=== PATIENT | male | born 1965 | race Caucasian/White ===

== ENCOUNTER 2016-08-18 15:04 | Emergency (ER) | payer OTHER ==
--- NOTE | 2016-08-18 15:38 | RADIOLOGY REPORT (SQ) ---
EXAM DESCRIPTION: CT HEAD WITHOUT COMPLETED DATE/TIME: 08/18/2016 3:24 pm REASON FOR STUDY: STROKE ALERT COMPARISON: None. TECHNIQUE: Axial images acquired through the brain without intravenous contrast. Images reviewed wi th bone, brain and subdural windows. Images stored on PACS. All CT scanners at this facility use dose modulation, iterative reconstruction, and/or weight based d osing when appropriate to reduce radiation dose to as low as reasonably achievable (ALARA). [facility]: Dose Right [facility]: CareDose [facility]: Dose Right [facility]: Teradose 4D [facility]: VCNC RADIATION DOSE: 64.61 mGy. LIMITATIONS: None. FINDINGS: VENTRICLES: Normal size and contour. CEREBRUM: No masses. No hemorrhage. No midline shift. Normal green/white matter differentiation. N o evidence for acute infarction. CEREBELLUM: No masses. No hemorrhage. No alteration of density. No evidence for acute infarction. EXTRAAXIAL SPACES: No fluid collections. No masses. ORBITS AND GLOBE: No intra- or extraconal masses. Normal contour of globe without masses. CALVARIUM: No fracture. PARANASAL SINUSES: No fluid or mucosal thickening. SOFT TISSUES: No mass or hematoma. OTHER: No other significant finding. IMPRESSION: NORMAL BRAIN CT WITHOUT CONTRAST. COMMENT: Pertinent positive or negative findings of the imaging study reported as a CRITICAL EXAM t o ER PROVIDER at15:32 on 08/18/2016. Category of Critical Exam: Stroke alert TECHNICAL DOCUMENTATION: JOB ID: [id number] Quality ID # [id number]: Final reports with documentation of one or more dose reduction techniques (e.g., Au tomated exposure control, adjustment of the mA and/or kV according to patient size, use of iterative reconstruction technique) 2010 [employer]- All Rights Reserved
--- NOTE | 2016-08-18 15:38 | RADIOLOGY REPORT (SQ) ---
EXAM DESCRIPTION: CHEST SINGLE VIEW COMPLETED DATE/TIME: 08/18/2016 3:26 pm REASON FOR STUDY: STROKE ALERT COMPARISON: None. EXAM PARAMETERS: NUMBER OF VIEWS: One view. TECHNIQUE: Single frontal radiographic view of the chest acquired. RADIATION DOSE: NA LIMITATIONS: None. FINDINGS: LUNGS AND PLEURA: No opacities, masses or pneumothorax. No pleural effusion. Granulomata. MEDIASTINUM AND HILAR STRUCTURES: No masses. Contour normal. HEART AND VASCULAR STRUCTURES: Heart normal in size. Normal vasculature. BONES: No acute findings. HARDWARE: None in the chest. OTHER: No other significant finding. IMPRESSION: NO ACUTE RADIOGRAPHIC FINDING IN THE CHEST. TECHNICAL DOCUMENTATION: JOB ID: [id number]
[2016-08-18 15:40] LABS: ABSOLUTE LYMPHOCYTES (AUTO) 3.4 10^3/uL (0.5-4.7); ABSOLUTE MONOCYTES (AUTO) 0.6 10^3/uL (0.1-1.4); ABSOLUTE NEUT (AUTO) 1.9 10^3/uL (1.7-8.2); BASOPHILS % (AUTO) 0.2 % (0-2); EOSINOPHILS % (AUTO) 0.5 % (0-6); HEMATOCRIT 46.8 % (37.9-51.0); HEMOGLOBIN 15.6 g/dL (13.5-17.0); LYMPHOCYTES % (AUTO) 57.3 % (13-45); MEAN CORPUSCULAR HEMOGLOBIN 29.8 pg (27.0-33.4); MEAN CORPUSCULAR HGB CONC 33.3 g/dL (32.0-36.0); MEAN CORPUSCULAR VOLUME 90 fl (80-97); MONOCYTES % (AUTO) 9.5 % (3-13); RED BLOOD COUNT 5.22 10^6/uL (4.35-5.55); RED CELL DISTRIBUTION WIDTH 13.3 % (11.5-14.0); SEGMENTED NEUTROPHILS % (AUTO) 32.5 % (42-78); WHITE BLOOD COUNT 5.9 10^3/uL (4.0-10.5)
[2016-08-18 15:43] LABS: PROTHROMBIN TIME 13.7 SEC (11.4-15.4)
[2016-08-18 15:44] LABS: PARTIAL THROMBOPLASTIN TIME 22.6 SEC (23.5-35.8)
--- NOTE | 2016-08-18 15:54 | ER Document Report ---
ED Dizziness/Weakness - General Mode of Arrival: Ambulatory Information source: Patient TRAVEL OUTSIDE OF THE [place] IN LAST 30 DAYS: No - HPI Onset: This morning - Refer to HPI notes <ENID LAMB - Last Filed: 08/18/16 17:59> <YADIRA PEREA - Last Filed: 08/18/16 19:20> - General Chief Complaint: Dizziness Stated Complaint: DIZZINESS Time Seen by Provider: 08/18/16 15:29 Notes: Patient is a 50-year-old male presenting to the emergency department for possible stroke. Patient visiting from [place] to help his son and his family move. Patient states that he was bending over to pickler helper a box when he became very dizzy and then diaphoretic. Patient describes his dizziness as being wobbly and not having good balance. Patient also complains of weakness to his right arm and he states he feels like his speech is slower than normal but not slurred. Patient also complains of some nausea, blurry vision and pain in the back of his neck at the base of his skull. Patient also complains of increased dizziness when using his eyes to follow finger movements. Patient states he may have taken the wrong doses of his medications but he is pretty sure that he read the labels correctly. Patient has a history of hypercholesterolemia, anxiety, and depression. Patient is not on any blood thinners and denies any history of seizures. Patient also denies any history of renal failure or problems with his kidneys. (ENID LAMB) Past Medical History - General Information source: Patient - Social History Smoking Status: Never Smoker Cigarette use (# per day): No Chew tobacco use (# tins/day): No Frequency of alcohol use: None Drug Abuse: None Family History: None Patient has suicidal ideation: No Patient has homicidal ideation: No - Past Medical History Cardiac Medical History: Reports: Hx Hypercholesterolemia Psychiatric Medical History: Reports: Hx Anxiety, Hx Depression Surgical Hx: Negative <ENID LAMB - Last Filed: 08/18/16 17:59> Review of Systems - Review of Systems Constitutional: See HPI, Diaphoresis EENT: See HPI, Blurred vision Cardiovascular: See HPI, Dizziness Respiratory: No symptoms reported Gastrointestinal: See HPI, Nausea Genitourinary: No symptoms reported Male Genitourinary: No symptoms reported Musculoskeletal: See HPI, Neck pain Skin: No symptoms reported Hematologic/Lymphatic: No symptoms reported Neurological/Psychological: See HPI, Headaches, Speech impairment -: Yes All other systems reviewed and negative <ENID LAMB - Last Filed: 08/18/16 17:59> Physical Exam <ENID LAMB - Last Filed: 08/18/16 17:59> <YADIRA PEREA - Last Filed: 08/18/16 19:20> - Vital signs Vitals: Temp Pulse Resp BP Pulse Ox 97.7 F 67 16 133/111 H 98 08/18/16 15:09 08/18/16 15:09 08/18/16 15:09 08/18/16 15:09 08/18/16 15:09 - Notes Notes: GENERAL: Alert, interacts well. No acute distress. HEAD: Normocephalic, atraumatic. No facial droop. EYES: Pupils equal, round, and reactive to light. Extraocular movements intact. ENT: Oral mucosa moist, tongue midline. NECK: Full range of motion. Supple. Trachea midline. LUNGS: Clear to auscultation bilaterally, no wheezes, rales, or rhonchi. No respiratory distress. HEART: Regular rate and rhythm. 1/6 systolic ejection murmur. No gallops or rubs. ABDOMEN: Soft, non-tender. Non-distended. Bowel sounds present in all 4 quadrants. EXTREMITIES: 4/5 muscle strength on the right upper extremity compared to the left. No pronator drift. Moves all 4 extremities spontaneously. No edema, radial and dorsalis pedis pulses 2/4 bilaterally. No cyanosis. NEUROLOGICAL: Alert and oriented x3. Normal speech. Cranial nerves II through XII grossly intact. Slight decreased sensation to the left face with light touch. No difficulty discerning dull versus sharp touch. PSYCH: Normal affect, normal mood. SKIN: Warm, dry, normal turgor. No rashes or lesions noted. (ENID LAMB) Course - Laboratory Result Diagrams: 08/18/16 15:30 08/18/16 15:30 <ENID LAMB - Last Filed: 08/18/16 17:59> - Laboratory Result Diagrams: 08/18/16 15:30 08/18/16 15:30 <YADIRA PEREA - Last Filed: 08/18/16 19:20> - Re-evaluation Re-evalutation: 08/18/16 18:16 MRI/MRA is unremarkable, no acute findings, no evidence of posterior infarct or cerebellar infarct. 08/18/16 19:19 CBC grossly unremarkable, coags within normal limits, CMP grossly unremarkable, cardiac enzymes negative. CT scan of the head negative for any acute hemorrhage. Given the patient's headache and persistent dizziness I am concerned for possible cerebellar stroke, patient was sent for an emergent MRI MRA of the head and this was negative. At this time I feel it is more likely that this represents peripheral vertigo although the Hilario-Hallpike test was negative bilaterally. Patient was started on Antivert, discharged to home with instructions on drinking plenty of fluids, trialing the Antivert and returning for any new or concerning symptoms. (YADIRA PEREA) - Vital Signs Vital signs: Temp Pulse Resp BP Pulse Ox 97.7 F 72 16 142/96 H 100 08/18/16 15:09 08/18/16 15:20 08/18/16 15:20 08/18/16 15:20 08/18/16 15:20 - Laboratory Laboratory results interpreted by me: 08/18/16 08/18/16 08/18/16 15:30 15:30 15:30 Seg Neutrophils % 32.5 L Lymphocytes % 57.3 H APTT 22.6 L Sodium 145.3 H Creatine Kinase 48 L - EKG Interpretation by Me Additional EKG results interpreted by me: 08/18/16 19:19 EKG shows sinus rhythm at a rate of 69, normal axis, normal intervals, no ST segment elevations or depressions, no T-wave inversions although there is T- wave flattening in aVL and lead I per my interpretation. (YADIRA PEREA) Discharge <ENID LAMB - Last Filed: 08/18/16 17:59> <YADIRA PEREA - Last Filed: 08/18/16 19:20> - Discharge Clinical Impression: Vertigo Condition: Stable Disposition: HOME, SELF-CARE Instructions: Vertigo ([facility]), Meclizine ([facility]) Prescriptions: Meclizine HCl 25 mg PO QIDP PRN #40 tablet PRN Reason: Scribe Attestation: 08/18/16 19:20 I personally performed the services described in the documentation, reviewed and edited the documentation which was dictated to the scribe in my presence, and it accurately records my words and actions. (YADIRA PEREA) ED NIH Stroke Scale - NIH Stroke Scale When completed:: Protocol *: 1. NIH scale should be completed with appropriate accompanying assessment tools. *: 2. The NIH should reflect what the patient is capable of doing and should not be coached by the clinician. 1a. Level of Consciousness: 0=Alert;keenly responsive -: 1=Drowsy -: 2=Obtunded -: 3=Coma/unresponsive or reflex to noxious stimuli. 1a. Responses: 0 1b. Orientation Questions: a. What month is it? -: b. How old are you? -: 0=Answers both questions correctly. -: 1=Answers one question correctly or patient is intubated or has orotracheal trauma. -: 2=Answers neither question correctly. 1b. Responses: 0 1c. Response to commands: a. Open and close eyes? -: b. [employer] Player and release hand? -: Credit is given despite weakness. Demonstration of task is permitted. Substitute command if hands cannot be used. -: 0=Performs both tasks correctly -: 1=Performs one task correctly -: 2=Performs neither task correctly 1c. Responses: 0 2. Gaze: Establish eye contact and instruct patient to "Follow my finger" -: 0=Normal -: 1=Partial gaze palsy. Gaze is abnormal in one or both eyes, but where forced deviation or total gaze paresis is not present. -: 2=Forced deviation or total gaze paresis. 2. Responses: 0 3. Visual Lou: Sees fingers in all four quadrants. -: 0=No visual loss. -: 1=Partial hemianopsia. -: 2=Complete hemianopsia. -: 3=Bilateral hemianopsia (including Cortical blindness) 3. Responses: 0 4. Facial Movement: Instruct patient to: -: a. Show me your teeth -: b. Raise your eyebrows -: c. Close your eyes -: d. Smile -: 0=Normal symmetrical movement -: 1=Minor paralysis (flattened nasolabial fold, asymmetry on smiling). -: 2=Partial paralysis (total or near total paralysis of lower face). -: 3=Complete paralysis of upper and lower face 4. Responses: 0 5. Motor functions (left arm): Alternate sides and extend each arm with palms down (90 degrees if sitting or 45 degrees for supine). -: 0=No drift;limb holds for full 10 seconds. -: 1=Drift; limb holds but drifts down before full 10 seconds, but does not hit bed. -: 2=Some effort against gravity; limb cannot get to or maintain position. -: 3=No effort against gravity; limb falls. -: 4=No movement. -: UN=Amputation, joint fusion, explain in comments. 5. Responses (left arm): 0 5. Motor Functions (right arm): Alternate sides and extend each arm with palms down (90 degrees if sitting or 45 degrees for supine). -: 0=No drift;limb holds for full 10 seconds. -: 1=Drift; limb holds but drifts down before full 10 seconds, but does not hit bed. -: 2=Some effort against gravity; limb cannot get to or maintain position. -: 3=No effort against gravity; limb falls. -: 4=No movement. -: UN=Amputation, joint fusion, explain in comments. 5. Responses (right arm): 0 6. Motor Functions (left leg): With patient lying supine, alternate sides and extend each leg (30 degrees always while supine). -: 0=No drift, leg holds position for full 5 seconds -: 1=Drift; leg falls before full 5 seconds but does not hit bed. -: 2=Some effort against gravity, leg falls to bed but some effort against gravity. -: 3=No effort against gravity, leg falls to bed immediately. -: 4=No movement. -: UN=Amputation, joint fusion; explain in comments. 6. Responses (left leg): 0 6. Motor Functions (right leg): With patient lying supine, alternate sides and extend each leg (30 degrees always while supine). -: 0=No drift, leg holds position for full 5 seconds -: 1=Drift; leg falls before full 5 seconds but does not hit bed. -: 2=Some effort against gravity, leg falls to bed but some effort against gravity. -: 3=No effort against gravity, leg falls to bed immediately. -: 4=No movement. -: UN=Amputation, joint fusion; explain in comments. 6. Responses (right leg): 0 7. Limb Ataxia: With eyes open instruct patient to: -: a. "Touch your finger to your nose". -: b. "Touch your heel to your frias" -: 0=Absent -: 1=Present in one limb. -: 2=Present in two limbs. -: UN=Amputation or joint fusion; explain in comments. 7. Responses: 0 8. Sensory: Test sensation using pinprick or noxious stimuli. Test as many body parts as possible. -: 0=Normal;no sensory loss -: 1=Mile to moderate sensory loss (patient feels pin prick but is less sharp on affected side). -: 2=Severe or total sensory loss. 8. Responses: 0 9. Best Language: Instruct patient to: -: a. "Describe what you see in this picture." -: b. "Name the items in this picture." -: c. "Read these sentences." -: 0=No aphasia, normal -: 1=Mild to moderate aphasia. -: 2=Severe aphasia -: 3=Mute, global aphasia, no usable speech or auditory comprehension. 9. Responses: 0 10. Articulation, Dysarthia: Instruct patient to: -: "Read these words" or "Repeat these words" -: 0=Normal -: 1=Mild to moderate; patient may slur some words but can be understood without difficulty. -: 2=Severe; patients speech so slurred as to be unintelligible in the absence of dysphasia. -: UN=Intubated or other physical barrier, explain in comments. 10. Responses: 0 11. Extinction or inattention: 0=No abnormality -: 1= Visual, tactile, auditory, spatial, or personal inattention or extinction to bilateral simulation in one or the sensory modalities. -: 2=Profound bronson-inattention or bronson-inattention to more than one modality; does not recognize own hand. 11. Responses: 0 Total Score: 0 <ENID LAMB - Last Filed: 08/18/16 17:59> Scribe Documentation - Scribe Written by Ceferino:: Ceferino Wolf, 08/18/16 17:40 acting as scribe for :: Afsaneh <ENID LAMB - Last Filed: 08/18/16 17:59>
[2016-08-18 15:59] LABS: ALANINE AMINOTRANSFERASE 36 U/L (21-72); ALBUMIN 4.6 g/dL (3.5-5.0); ALKALINE PHOSPHATASE 77 U/L (38-126); ANION GAP 13 (5-19); ASPARTATE AMINO TRANSFERASE 27 U/L (17-59); BILIRUBIN,DIRECT 0.4 mg/dL (0.0-0.4); BILIRUBIN,TOTAL 0.6 mg/dL (0.2-1.3); BLOOD UREA NITROGEN 18 mg/dL (7-20); CALCIUM 9.6 mg/dL (8.4-10.2); CARBON DIOXIDE 26 mmol/L (22-30); CHLORIDE 106 mmol/L (98-107); CREATINE KINASE 48 U/L (55-170); CREATININE RESULT 0.84 mg/dL (0.52-1.25); GLUCOSE 86 mg/dL (75-110); POTASSIUM 4.4 mmol/L (3.6-5.0); SODIUM 145.3 mmol/L (137-145); TOTAL PROTEIN 7.7 g/dL (6.3-8.2)
[2016-08-18 16:10] LABS: CREATINE KINASE MB 0.62 ng/mL (<4.55)
[2016-08-18 16:14] LABS: TROPONIN I < 0.012 ng/mL
--- NOTE | 2016-08-18 18:04 | RADIOLOGY REPORT (SQ) ---
EXAM DESCRIPTION: MRI HEAD WITHOUT; MRA HEAD WITHOUT COMPLETED DATE/TIME: 08/18/2016 5:46 pm REASON FOR STUDY: POSSIBLE STROKE; dizziness, possible posterior infarct COMPARISON: CT brain 08/18/2016 TECHNIQUE: Multiplanar imaging includes non-contrasted T1, T2, FLAIR, and diffusion with ADC map seq uences. Images stored on PACS. [place] MRA exam was performed with noncontrast 3D myzz-um-lqlcea technique. Images reviewe d at source data and maximum intensity projected images LIMITATIONS: None. FINDINGS: ANATOMY: No developmental anomalies. Normal vascular flow voids. Pituitary fossa normal. CSF SPACES: Normal in size and contour. No hemorrhage. CEREBRUM: Sulci and gyri normal in size and contour. Normal white matter signal on FLAIR imaging. No evidence of hemorrhage, mass, or extraaxial fluid collection. POSTERIOR FOSSA: No signal alteration. No hemorrhage. No edema, masses or mass effect. Internal matheus tory canals, cerebello-pontine angles, mastoids normal. DIFFUSION IMAGING: Negative for acute or sub-acute infarction. ORBITS: No masses. Globes normal. PARANASAL SINUSES: Mucus or serous retention cyst right maxillary sinus. Minimal fluid in the infer ior right mastoid air cells. MRA [place]: No other significant finding. No [place] stenosis, vascular malformat ion, or aneurysm. IMPRESSION: Unremarkable MRI brain without contrast. No acute findings. Unremarkable [place] MRA exam. TECHNICAL DOCUMENTATION: JOB ID: [id number] [employer]- All Rights Reserved
--- NOTE | 2016-08-18 18:04 | RADIOLOGY REPORT (SQ) ---
EXAM DESCRIPTION: MRI HEAD WITHOUT; MRA HEAD WITHOUT COMPLETED DATE/TIME: 08/18/2016 5:46 pm REASON FOR STUDY: POSSIBLE STROKE; dizziness, possible posterior infarct COMPARISON: CT brain 08/18/2016 TECHNIQUE: Multiplanar imaging includes non-contrasted T1, T2, FLAIR, and diffusion with ADC map seq uences. Images stored on PACS. [place] MRA exam was performed with noncontrast 3D [id number] technique. Images reviewe d at source data and maximum intensity projected images LIMITATIONS: None. FINDINGS: ANATOMY: No developmental anomalies. Normal vascular flow voids. Pituitary fossa normal. CSF SPACES: Normal in size and contour. No hemorrhage. CEREBRUM: Sulci and gyri normal in size and contour. Normal white matter signal on FLAIR imaging. No evidence of hemorrhage, mass, or extraaxial fluid collection. POSTERIOR FOSSA: No signal alteration. No hemorrhage. No edema, masses or mass effect. Internal matheus tory canals, cerebello-pontine angles, mastoids normal. DIFFUSION IMAGING: Negative for acute or sub-acute infarction. ORBITS: No masses. Globes normal. PARANASAL SINUSES: Mucus or serous retention cyst right maxillary sinus. Minimal fluid in the infer ior right mastoid air cells. MRA [place]: No other significant finding. No [place] stenosis, vascular malformat ion, or aneurysm. IMPRESSION: Unremarkable MRI brain without contrast. No acute findings. Unremarkable [place] MRA exam. TECHNICAL DOCUMENTATION: JOB ID: [id number] [employer]- All Rights Reserved
[2016-08-18 19:53] VITALS: BP 131/91
--- NOTE | 2016-08-19 10:23 | EKG REPORT ---
SEVERITY:- OTHERWISE NORMAL ECG - SINUS RHYTHM LOW VOLTAGE IN FRONTAL LEADS : Confirmed by: Lorrie Galarza MD 19-Aug-2016 10:22:28
== END 2016-08-18 19:50 | disposition home or self-care (01) ==
LOC: ER 15:04 → EDBD 15:04 → ER 19:50
DX: R42 Dizziness and giddiness (principal); R61 Generalized hyperhidrosis; R53.1 Weakness; H53.8 Other visual disturbances; R11.0 Nausea; M54.2 Cervicalgia; R20.8 Other disturbances of skin sensation; R51 Headache
CPT/HCPCS: 36415; 70450; 70544; 70551; 71010; 80053; 82550; 82553; 84484; 85025; 85610; 85730; 93005; 93010; 99285